=== PATIENT | female | born 1965 | race Asian ===

== ENCOUNTER 2017-03-18 02:51 | Emergency (ER) | payer SELFPAY ==
[~2017-03-18] VITALS: Ht 160 cm; Wt 51.1 kg
[2017-03-18 02:57] VITALS: Ht 160 cm; Wt 51.1 kg
--- NOTE | 2017-03-18 03:17 | ERD ---
ER Documentation Chief Complaint Chief Complaint forehead laceration, hit head against metal at 2am at work. no ko HPI 51-year-old female presents here to emergency department for a forehead laceration after hitting against a metal while getting up after putting down things. Patient describes the pain as sharp pain, 6/10 scale, as was upon touching the area. Patient did not lose consciousness after the injury. Patient did not have any vomiting. The wound was bleeding but stopped immediately afterwards. Patient does not have any blurry vision. Patient does not have any dizziness. Patient does not have any numbness or tingling, changes in balance or memory. ROS All systems reviewed and are negative except as per history of present illness. Medications Home Meds Reported Medications [None] Unknown Strength No Conflict Check 03/18/17 Allergies Allergies: Coded Allergies: No Known Drug Allergies (Verified Allergy, Unknown, 03/18/17) PMhx/Soc Unknown last tetanus immunization Medical and Surgical Hx: pt denies Medical Hx History of Surgery: Yes () Hx Alcohol Use: No Hx Substance Use: No Hx Tobacco Use: No Smoking Status: Never smoker FmHx Family History: No coronary disease, No diabetes, No other Physical Exam Vitals Vital Signs Date Time Temp Pulse Resp B/P Pulse Ox O2 Delivery O2 Flow Rate FiO2 03/18/17 02:57 97.8 89 20 135/79 100 Physical Exam GENERAL: The patient is well developed and appropriate for usual state of health, in no apparent distress. CHEST: Clear to auscultation bilaterally. There are no rales, wheezes or rhonchi. HEART: Regular rate and rhythm. No murmurs, clicks, rubs or gallops. No S3 or S4. ABDOMEN: Soft, nontender and nondistended. Good bowel sounds. No rebound or guarding. No gross peritonitis. No gross organomegaly or masses. No Del Cid sign or McBurney point tenderness. BACK: No midline or flank tenderness. EXTREMITIES: Equal pulses bilaterally. There is no peripheral clubbing, cyanosis or edema. No focal swelling or erythema. Full range of motion. Grossly neurovascularly intact. NEURO: Alert and oriented. Cranial nerves 2-12 intact. Motor strength in all 4 extremities with 5/5 strength. Sensation grossly intact. Normal speech and gait. Negative Romberg sign. Negative pronator drift. SKIN: 2.5 cm forehead laceration noted. No galea involvement. There is no apparent rash or petechia. The skin is warm and dry. HEMATOLOGIC AND LYMPHATIC: There is no evidence of excessive bruising or lymphedema. No gross cervical, axillary, or inguinal lymphadenopathy. Results 24 hrs Current Medications Medications (Trade) Dose Ordered Sig/Jony Route PRN Reason Start Time Stop Time Status Last Admin Dose Admin Diphtheria/ Tetanus/Acell Pertussis (Adacel) 0.5 ml ONCE ONCE IM* 03/18/17 03:30 03/18/17 03:31 Tdap was given to prevent tetanus. Patient tolerated medication well. Procedures/MDM Procedure Note: After obtaining informed consent, the wound was irrigated with 250 ml of normal saline and cleaned with diluted betadine. Using aseptic technique, the wound was approximated using a dermabond and Steri-Strips. After the procedure, the wound was well approximated. Patient tolerated procedure well. Medical Decision Making: Symptoms was likely is consistent with a head injury, patient acquired a forehead laceration which was easily approximated using Dermabond and Steri-Strips. There is low suspicion for neurological emergencies at this time since patients neurologic exam is normal. Patient did not have any altered level consciousness, vomiting, changes in balance or memory after incident. Patients CT scan of the head not indicated at this time. Patient was advised to have wound check in 2 days, avoid letting the area , applying chemicals, and keep the area dry for at least 5 days. Patient was advised to return to emergency department for any worsening symptoms. Prescription was given for Keflex to prevent infection, Tylenol for pain. Dispostion: Home. Stable Disclaimer: Inadvertent spelling and grammatical errors are likely due to EHR/ dictation software use and do not reflect on the overall quality of patient care. Also, please note that the electronic time recorded on this note does not necessarily reflect the actual time of the patient encounter. Departure Diagnosis: Primary Impression: Forehead laceration Encounter type: initial encounter Qualified Code: S01.81XA - Laceration of forehead, initial encounter Additional Impression: Head injury Encounter type: initial encounter Qualified Code: S09.90XA - Injury of head , initial encounter Condition: Stable Patient Instructions: HEAD INJURY, No Wake-Up (Adult), Laceration, Face (Skin Glue) Additional Instructions: Patient was advised to have wound check in 2 days, avoid letting the area, applying chemicals, and keep the area dry for at least 5 days. Patient was advised to return to emergency department for any worsening symptoms. Prescription was given for Keflex to prevent infection, Tylenol for pain. ADELITA LEON NP Mar 18, 2017 03:17
[2017-03-18] MEDS ORDERED: ACET500C5 PO (03:26)
[2017-03-18] MEDS ORDERED: CEPH-443 PO (03:26)
[2017-03-18] MEDS ORDERED: DIPHTH/TET/ACEL PERTUSS (ADULT) 0.5 ML VIAL IM* ONE (03:30)
== END 2017-03-18 03:40 | disposition home or self-care (01) ==
LOC: FTE 02:51
DX: S01.81XA Laceration without foreign body of other part of head, initial encounter (principal); S09.90XA Unspecified injury of head, initial encounter; W26.8XXA Contact with other sharp object(s), not elsewhere classified, initial encounter; Y92.9 Unspecified place or not applicable; Z23 Encounter for immunization
CPT/HCPCS: 90471; 90715